=== PATIENT | male | born 1945 | race Caucasian/White ===

== ENCOUNTER → 2020-08-17 | Outpatient (CLI) | payer MEDICARE, OTHER ==
[2015-11-01 12:45] VITALS: BP 103/37
[~2020-08-17] MED LIST: ESOM40CA PO; MULT-208 PO; OXYC1TAB19 PO; SIMV40TA18 PO; TELM40TA PO; VENTOLIN HFA18 GM IH
--- NOTE | 2020-08-17 14:00 | KCIC ---
EXAM: Cervical spine, 3 views. HISTORY: Headache. COMPARISON: None. FINDINGS: 3 views of the cervical spine are obtained. There is minimal retrolisthesis of C3 on C4. There is degenerative endplate remodeling with disc space narrowing and osteophytosis at C3-C4, C4-C5 and C6-C7. There is a suspected prominent Schmorl's node within the superior aspect of C5. There is multilevel facet arthropathy. IMPRESSION: 1. Multilevel degenerative change involving the cervical spine, described above. 2. No acute osseous finding. Electronically signed by: Adela Carlos MD (08/17/2020 1:57 PM) [id number]
== END ==
LOC: KCIC 13:34
PROVIDERS: ATTEND Family Medicine
DX: M47.812 Spondylosis without myelopathy or radiculopathy, cervical region (principal); M48.02 Spinal stenosis, cervical region; G44.89 Other headache syndrome
CPT/HCPCS: 72040